=== PATIENT | male | born 1965 | race Caucasian/White ===

== ENCOUNTER → 2016-07-03 | Outpatient (CLI) | payer OTHER ==
[~2016-07-03] VITALS: Ht 180.3 cm; Wt 86.2 kg
[~2016-07-03] MED LIST: ASPIR-LOW81 MG PO; FLOMAX0.4 MG PO; METOPROLOL TART50 MG PO; MOTRIN800 MG PO; NORVASC10 MG PO; PERCOCET 5/31 TABLET PO; PRAVASTATIN SOD40 MG PO; PREVACID30 MG PO; THERALITH XR T1 EACH PO; TOPROL XL50 MG PO; TORADOL10 MG PO; VITAMIN D31000 UNIT PO; ZOFRAN ODT8 MG PO
== END | disposition home or self-care (01) ==
LOC: AMB 07:18
PROC: 0TF4XZZ Fragmentation in Left Kidney Pelvis, External Approach (ICD-10-PCS; principal; 2016-07-03)
DX: N20.2 Calculus of kidney with calculus of ureter (principal); I10 Essential (primary) hypertension; E78.5 Hyperlipidemia, unspecified; Z82.49 Family history of ischemic heart disease and other diseases of the circulatory system
CPT/HCPCS: 74010; J2250; J3010

== ENCOUNTER 2016-08-19 11:34 | Emergency (ER) | payer OTHER ==
[~2016-08-19] VITALS: Ht 180.3 cm; Wt 90.8 kg
[2016-08-19 12:45] LABS: HEMATOCRIT 47.9 % (38.0-50.0); MCH 28.2 PG (29.0-34.0); MCHC 33.6 G/DL (30.0-36.0); MEAN PLAT.VOLUME 9.8 uM^3 (9.0-12.4); PLATELET COUNT 333 K/uL (156-360); RBC DIS.WIDTH-CV 12.6 % (11.8-14.6); RBC DIS.WIDTH-SD 38.3 % (39-53); WHITE BLOOD COUNT 20.6 K/uL (4.1-10.2)
[2016-08-19 12:54] LABS: CHLORIDE 106 mEq/L (99-109); POTASSIUM 4.1 mEq/L (3.7-5.4); SODIUM 137 mEq/L (136-147)
[2016-08-19 12:55] LABS: GLUCOSE 120 mg/dL (70-99)
[2016-08-19 12:57] LABS: ANION GAP 11 MEQ/L (2-14)
[2016-08-19 12:59] LABS: GFR ESTIMATE (CALCULATED) 57 mL/min/
[2016-08-19 13:00] LABS: UREA NITROGEN (BUN) 16 mg/dL (9-23)
[2016-08-19 14:08] LABS: ADD MIUA? YES; BILIRUBIN NEGATIVE; BLOOD LARGE; COLOR STRAW ((YELLOW)); GLUCOSE (STRIP) NEGATIVE; KETONES NEGATIVE; LEUKOCYTES NEGATIVE; NITRITE NEGATIVE; PROTEIN (STRIP) NEGATIVE; UROBILINOGEN 0.2 MG/DL (0.2-1.0)
[2016-08-19 14:17] LABS: BACTERIA NONE SEEN /HPF; EPITHELIAL CELLS NONE SEEN /HPF; MUCUS TRACE /LPF; UCUL ADDED? NO; WHITE BLOOD CELLS 0-5 /HPF (0-5)
[2016-08-19] MEDS ORDERED: ZOFRAN4 MG PO (14:38)
[2016-08-19] MEDS ORDERED: PERCOCET 5/31 TABLET PO (14:38)
[2016-08-19 14:54] VITALS: BP 113/85
== END 2016-08-19 14:57 | disposition home or self-care (01) ==
LOC: EME 11:34
DX: N13.2 Hydronephrosis with renal and ureteral calculous obstruction (principal); E78.5 Hyperlipidemia, unspecified
CPT/HCPCS: 74176; 80048; 81003; 85027; 87086; 99281; 99284; J1885; J2270; J2405; J7030

== ENCOUNTER 2016-09-11 06:49 | Emergency (ER) | payer OTHER ==
[~2016-09-11] VITALS: Ht 180.3 cm; Wt 87.0 kg
[~2016-09-11 06:49] MED LIST changes: +ZOFRAN4 MG PO
[2016-09-11] MEDS ORDERED: FLEXERIL10 MG PO (07:30)
[2016-09-11] MEDS ORDERED: LIDODERM 5% P1 PATCH TD (07:30)
[2016-09-11] MEDS ORDERED: NAPROSYN500 MG PO (07:30)
[2016-09-11 08:17] VITALS: BP 106/78
== END 2016-09-11 08:18 | disposition home or self-care (01) ==
LOC: EME 06:49
DX: S29.012A Strain of muscle and tendon of back wall of thorax, initial encounter (principal); M62.830 Muscle spasm of back; X50.0XXA Overexertion from strenuous movement or load, initial encounter; Y93.89 Activity, other specified; Z87.442 Personal history of urinary calculi
CPT/HCPCS: 99281; 99284; J1885

== ENCOUNTER 2017-10-28 05:47 | Inpatient (IN) | payer BC ==
[~2017-10-28] VITALS: Ht 180.3 cm; Wt 91.2 kg
[~2017-10-28 05:47] MED LIST changes: +FLEXERIL10 MG PO; +LIDODERM 5% P1 PATCH TD; +NAPROSYN500 MG PO
[2017-10-28 06:33] LABS: HEMATOCRIT 43.3 % (38.0-50.0); HEMOGLOBIN 15.3 G/DL (12.5-16.6); MCH 29.5 PG (29.0-34.0); MCHC 35.3 G/DL (30.0-36.0); MCV 83.4 FL (86-99); PLATELET COUNT 306 K/uL (156-360); RBC DIS.WIDTH-CV 12.8 % (11.8-14.6); RBC DIS.WIDTH-SD 38.7 % (39-53); RED BLOOD COUNT 5.19 M/uL (4.00-5.50); WHITE BLOOD COUNT 21.3 K/uL (4.1-10.2)
[2017-10-28 06:42] LABS: APPEARANCE CLEAR ((CLEAR)); BILIRUBIN NEGATIVE; BLOOD MODERATE; COLOR YELLOW ((YELLOW)); GLUCOSE (STRIP) NEGATIVE; KETONES 20; LEUKOCYTES TRACE; NITRITE NEGATIVE; PROTEIN (STRIP) 100; SPECIFIC GRAVITY 1.018 (1.000-1.030); UROBILINOGEN 0.2 MG/DL (0.2-1.0)
[2017-10-28 06:48] LABS: BACTERIA 1+ /HPF; CALCIUM OXALATE CRYSTALS 3+ /HPF; EPITHELIAL CELLS RARE /HPF; MUCUS 1+ /LPF; RED BLOOD CELLS TNTC /HPF (0-5); UCUL ADDED? YES
[2017-10-28 07:30] LABS: ALKALINE PHOSPHATASE 112 IU/L (3-129); ALT (GPT) 12 IU/L (3-49); AST (GOT) 13 IU/L (2-34); CHLORIDE 105 MEQ/L (99-109); CREATININE 1.2 MG/DL (0.6-1.3); GFR ESTIMATE (CALCULATED) > 59 mL/min/ (58.99-99999); GLUCOSE 165 mg/dL (70-99); LIPASE 19 U/L (1.0-51.0); POTASSIUM 3.9 MEQ/L (3.7-5.4); SODIUM 136 MEQ/L (136-147); TOTAL BILIRUBIN 0.5 MG/DL (0.0-1.0); TOTAL PROTEIN 6.3 G/DL (6.4-8.3); UREA NITROGEN (BUN) 25 mg/dL (9-23)
[2017-10-28 14:16] VITALS: BP 114/66
[2017-10-28 17:29] VITALS: BP 115/67
[2017-10-28 20:53] VITALS: BP 130/75
[2017-10-28 23:44] VITALS: BP 118/70
[2017-10-29 03:54] VITALS: BP 101/68
[2017-10-29 06:44] LABS: HEMATOCRIT 40.4 % (38.0-50.0); HEMOGLOBIN 13.5 G/DL (12.5-16.6); MCH 28.9 PG (29.0-34.0); MCHC 33.4 G/DL (30.0-36.0); MCV 86.5 FL (86-99); PLATELET COUNT 257 K/uL (156-360); RBC DIS.WIDTH-CV 13.2 % (11.8-14.6); RBC DIS.WIDTH-SD 41.4 % (39-53); RED BLOOD COUNT 4.67 M/uL (4.00-5.50); WHITE BLOOD COUNT 9.8 K/uL (4.1-10.2)
[2017-10-29 07:10] LABS: CHLORIDE 110 MEQ/L (99-109); CREATININE 0.8 MG/DL (0.6-1.3); GFR ESTIMATE (CALCULATED) > 59 mL/min/ (58.99-99999); POTASSIUM 4.2 MEQ/L (3.7-5.4); UREA NITROGEN (BUN) 10 mg/dL (9-23)
[2017-10-29 07:12] LABS: GLUCOSE 107 mg/dL (70-99); SODIUM 144 MEQ/L (136-147)
[2017-10-29 08:13] VITALS: BP 126/71; BP 165/94
[2017-10-29 11:51] VITALS: BP 111/67
== END 2017-10-29 17:52 | disposition home or self-care (01) | DRG 669 ==
LOC: EME 05:47 → 5SOUTH 09:02 → EDOF 09:02 → ENRESERV 09:10 → 5SOUTH 13:26
PROVIDERS: Hospitalist; Internal Medicine; Physician Assistant
DX: N13.2 Hydronephrosis with renal and ureteral calculous obstruction (principal); E87.2 Acidosis; E78.5 Hyperlipidemia, unspecified; I10 Essential (primary) hypertension; Z87.442 Personal history of urinary calculi
CPT/HCPCS: 74176; 74420; 80048; 80053; 81003; 82365 90; 83605; 83690; 85027; 87040; 87086; 99281; 99285; C2625; J0696; J1100; J1644; J1885; J2250; J2270; J2405; J2765; J3010; J7030; J7120; J7643

== ENCOUNTER 2017-11-24 21:44 | Emergency (ER) | payer BC ==
[~2017-11-24] VITALS: Ht 180.3 cm; Wt 91.4 kg
[2017-11-24] MEDS ORDERED: ENDOCET 5-3251 EACH PO (21:59)
[2017-11-24] MEDS ORDERED: FLOMAX0.4 MG PO (21:59)
[2017-11-24 22:19] LABS: HEMATOCRIT 42.8 % (38.0-50.0); HEMOGLOBIN 14.8 G/DL (12.5-16.6); MCH 29.4 PG (29.0-34.0); MCHC 34.6 G/DL (30.0-36.0); MCV 84.9 FL (86-99); PLATELET COUNT 260 K/uL (156-360); RBC DIS.WIDTH-CV 12.6 % (11.8-14.6); RBC DIS.WIDTH-SD 38.3 % (39-53); RED BLOOD COUNT 5.04 M/uL (4.00-5.50); WHITE BLOOD COUNT 16.2 K/uL (4.1-10.2)
[2017-11-24 22:33] LABS: CHLORIDE 103 mEq/L (99-109); POTASSIUM 3.8 mEq/L (3.7-5.4); SODIUM 136 mEq/L (136-147)
[2017-11-24 22:35] LABS: GLUCOSE 165 mg/dL (70-99)
[2017-11-24 22:39] LABS: CREATININE 1.4 mg/dL (0.6-1.3); GFR ESTIMATE (CALCULATED) 57 mL/min/ (58.99-99999)
[2017-11-24 22:40] LABS: UREA NITROGEN (BUN) 15 mg/dL (9-23)
[2017-11-25 01:17] LABS: APPEARANCE CLEAR ((CLEAR)); BILIRUBIN NEGATIVE; BLOOD LARGE; COLOR YELLOW ((YELLOW)); GLUCOSE (STRIP) NEGATIVE; KETONES NEGATIVE; LEUKOCYTES SMALL; NITRITE NEGATIVE; PROTEIN (STRIP) NEGATIVE; UROBILINOGEN 0.2 MG/DL (0.2-1.0)
[2017-11-25 01:22] LABS: BACTERIA RARE /HPF; EPITHELIAL CELLS NONE SEEN /HPF; HYALINE CASTS 0-5 /LPF; MUCUS TRACE /LPF; RED BLOOD CELLS 20-30 /HPF (0-5); UCUL ADDED? YES
[2017-11-25] MEDS ORDERED: ZOFRAN4 MG PO (01:38)
[2017-11-25 01:58] VITALS: BP 110/65
== END 2017-11-25 02:21 | disposition home or self-care (01) ==
LOC: RME 21:44 → EME 21:44 → RME 11-25 02:21
PROVIDERS: Nurse Practitioner Family
DX: N13.2 Hydronephrosis with renal and ureteral calculous obstruction (principal); I10 Essential (primary) hypertension; E78.5 Hyperlipidemia, unspecified; Z87.442 Personal history of urinary calculi
CPT/HCPCS: 74176; 80048; 81003; 85027; 87086; 99281; 99284; J1885; J2405; J3010; J7030